=== PATIENT | female | born 1985 | race American Indian/Alaskan Native ===

== ENCOUNTER 2017-04-20 21:52 | Emergency (ER) | payer SELFPAY ==
[2017-04-20 22:30] LABS: Basophils % (Auto) 0.5 % (0.0-1.8); Eosinophils % (Auto) 0.7 % (0.0-4.3); Hematocrit 39.9 % (30.3-42.9); Hemoglobin 12.9 gm/dl (10.1-14.3); Mean Corpuscular HGB Conc 32 % (30-34); Mean Corpuscular Hemoglobin 28 pg (28-32); Mean Corpuscular Volume 85 fl (79-97); Platelet Count 237 K/mm3 (140-440); Red Cell Distribution Width 12.8 % (13.2-15.2); White Blood Count 8.2 K/mm3 (4.5-11.0)
[2017-04-20 22:45] LABS: Anion Gap 19 mmol/L; Blood Urea Nitrogen 16 mg/dL (7-17); Calcium 9.2 mg/dL (8.4-10.2); Carbon Dioxide 24 mmol/L (22-30); Chloride 102.7 mmol/L (98-107); Glucose 95 mg/dL (65-100); Potassium 4.3 mmol/L (3.6-5.0); Sodium 141 mmol/L (137-145)
[2017-04-21 03:00] VITALS: BP 122/76
== END 2017-04-21 04:00 | disposition left against medical advice (07) ==
LOC: ED 21:52
DX: R06.02 Shortness of breath (principal); Z53.21 Procedure and treatment not carried out due to patient leaving prior to being seen by health care provider
CPT/HCPCS: 36415; 80048; 84484; 85025; 93005; 93010

== ENCOUNTER 2021-09-14 09:30 | Emergency (ER) | payer SELFPAY ==
[2021-09-14 10:34] VITALS: BP 146/85
--- NOTE | 2021-09-14 12:16 | Emergency Department Report ---
Minor Respiratory - HPI Chief Complaint: Fever Stated Complaint: POSS COVID Time Seen by Provider: 09/14/21 12:02 Duration: 1 Day Pain Location: Throat Severity: mild Minor Respiratory: Yes Rhinorrhea, Yes Sore Throat, Yes Able to Tolerate Fluids, Yes Cough, Yes Fever, No Ear Pain, No Sick Contacts, No Hemoptysis, No Chest Pain, No Shortness of Breath Other History: 35-year-old -[place] female who is unvaccinated for Covid and flu presents to the emergency room stating that she has flulike symptoms that started yesterday. Patient states she has a cough sore throat nausea and decreased appetite body aches and headache. She states that her head feels like he has pressure. She denies any past medical history currently takes no meds on a daily basis and has an allergy to azithromycin. She has not tested for Covid. ED Review of Systems ROS: Stated complaint: POSS COVID Other details as noted in HPI Comment: All other systems reviewed and negative ED Past Medical Hx - Social History Smoking Status: Current Some Day Smoker Substance Use Type: None - Medications Home Medications: Home Medications Medication Instructions Recorded Confirmed Last Taken Type No Known Home Medications [No 11/07/15 11/07/15 Unknown History Reported Home Medications] Minor Respiratory Exam - Exam General: Vital signs noted. No distress. Alert and acting appropriately. HEENT: Yes Moist Mucous Membranes, No Pharyngeal Erythema, No Pharyngeal Exudates, No Rhinorrhea, No Conjuctival Injection, No Frontal Tenderness, No Maxillary Tenderness Neck: Yes Supple, No Adenopathy Lungs: Yes Good Air Exchange, No Wheezes, No Ronchi, No Stridor, No Cough, No Labored Respirations, No Retractions, No Use of Accessory Muscles, No Other Abnormal Lung Sounds Heart: Yes Regular, No Murmur Abdomen: Yes Normal Bowel Sounds, No Tenderness, No Peritoneal Signs Skin: No Rash, No Edema Neurologic: Alert and oriented, no deficits. Musculoskeletal: Unremarkable. ED Course Vital Signs 09/14/21 10:33 Temperature 98.8 F Pulse Rate 80 Respiratory 18 Rate Blood Pressure 146/85 O2 Sat by Pulse 100 Oximetry ED Medical Decision Making - Medical Decision Making 35-year-old -[place] female who is unvaccinated for Covid and flu presents to the emergency room stating that she has flulike symptoms that started yesterday. Patient states she has a cough sore throat nausea and decreased appetite body aches and headache. She states that her head feels like he has pressure. She denies any past medical history currently takes no meds on a daily basis and has an allergy to azithromycin. She has not tested for Covid. Patient has stable vital signs she is afebrile. Patient has a normal examination. I recommend for patient to get Covid tested quarantine increase her fluids Tylenol ibuprofen and treat her symptoms. Critical care attestation.: If time is entered above; I have spent that time in minutes in the direct care o f this critically ill patient, excluding procedure time. ED Disposition Clinical Impression: Suspected COVID-19 virus infection, Viral syndrome Disposition: HOME / SELF CARE / HOMELESS Is pt being admited?: No Does the pt Need Aspirin: No Condition: Stable Instructions: Viral Respiratory Infection, [id number], COVID-19 Frequently Asked Questions, COVID-19: How to Protect Yourself and Others - [facility], Prevent the Spread of COVID-19 if You Are Sick - [facility] Additional Instructions: Your symptoms appear most consistent with a nonspecific viral syndrome. However, given this current pandemic, COVID-19 is in the differential of possibilities. I do recommend outpatient Covid 19 testing. In the meantime, isolate/quarantine yourself and stay away from anyone who is elderly, immunocompromised or chronically ill. You can use ibuprofen every 6-8 hours and Tylenol every 4-8 hours, using the dosing on the back of the bottle, as needed for any fever or body aches. Return to the emergency department with any worsening of your symptoms, development of chest pain or shortness of breath, or with any acute distress. Referrals: Your, primary care provider [Other] - 3-5 Days Forms: Work/School Release Form(ED) Time of Disposition: 12:17
== END 2021-09-14 15:21 | disposition home or self-care (01) ==
LOC: ED 09:30
DX: B34.9 Viral infection, unspecified (principal); Z20.822 Contact with and (suspected) exposure to COVID-19; F17.200 Nicotine dependence, unspecified, uncomplicated; Z88.1 Allergy status to other antibiotic agents
CPT/HCPCS: 99282